=== PATIENT | female | born 1995 | race Caucasian/White ===

== ENCOUNTER 2018-12-21 05:36 | Outpatient (CLI) | payer OTHER ==
[~2018-12-21] VITALS: Ht 154.9 cm; Wt 53.7 kg
[2018-12-21 06:29] VITALS: Ht 154.9 cm; Wt 53.7 kg
[2018-12-21 06:30] VITALS: BP 106/65; PULSE 71; RESP 18
[2018-12-21] MEDS ORDERED: FER325 PO (06:32)
[2018-12-21] MEDS ORDERED: PREN-93 PO (06:33)
[2018-12-21] MEDS ORDERED: LACTATED RINGER'S 1,000 ML IV SCH (06:35)
--- NOTE | 2018-12-21 09:23 | TRIAGE ---
OB Triage Datetime Report Generated by CPN: 12/21/2018 09:23 Datetime: 12/21/2018 07:51 Maternal Assessment Level of Consciousness: Keenly Alert, Responsive DTR's/Clonus: DTRs 2+ Headache: Denies Blurred Vision: No Nausea/Vomiting: Denies RUQ Epigastric Pain: Denies Facial Edema: None Labor Evaluation Frequency: OCCAS Monitor Mode: External Quality: Mild Pattern: Normal: <= 5 Contractions in 10 Minutes Resting Tone [place]: Relaxed Heart Rate FHR Baseline Rate: 135 Monitor Mode: External US FHR Baseline Changes: No Baseline Change Variability: Moderate 6-25 bpm Accelerations: 15X15 Decelerations: None Category: Category I Pain Assessment Pain Scale: 6 Pain Presence: Intermittent Pain Type: Cramping Pain Location: Abdomen Pain Goal: 3 Vaginal Exam Membrane Status: Intact Datetime: 12/21/2018 07:20 Maternal Assessment Level of Consciousness: Keenly Alert, Responsive DTR's/Clonus: DTRs 2+; No Clonus Headache: Denies Blurred Vision: No Respiratory Effort: Unlabored; Regular Rhythm; Equal Expansion Breath Sounds, Left: Clear and Equal Breath Sounds, Right: Clear and Equal Nausea/Vomiting: Denies RUQ Epigastric Pain: Denies Facial Edema: None Fall Risk Assessment History of Falling: (0) No Secondary Diagnosis: (0) No Ambulatory Aid: (0) Bedrest/Nurse Assist IV Therapy: (0) No Gait: (0) Normal/Bedrest/Immobile Mental Status: (0) Oriented to Own Ability Fall Score: 0 Fall Risk Score Definition: No Risk: No action required Datetime: 12/21/2018 06:39 Maternal Assessment Level of Consciousness: Keenly Alert, Responsive DTR's/Clonus: DTRs 2+ Headache: Denies Blurred Vision: No Nausea/Vomiting: Denies RUQ Epigastric Pain: Denies Facial Edema: None Labor Evaluation Frequency: MILD IRREG Monitor Mode: External Quality: Mild Pattern: Normal: <= 5 Contractions in 10 Minutes Resting Tone [place]: Relaxed Heart Rate FHR Baseline Rate: 145 Monitor Mode: External US FHR Baseline Changes: No Baseline Change Variability: Moderate 6-25 bpm Accelerations: 15X15 Decelerations: None Category: Category I Pain Assessment Pain Scale: 6 Pain Presence: Intermittent Pain Type: Cramping Pain Location: Abdomen Vaginal Exam Membrane Status: Intact Datetime: 12/21/2018 06:37 Stage of : OB Triage Datetime: 12/21/2018 06:24 Stage of : OB Triage Datetime: 12/21/2018 06:00 Stage of : OB Triage Labor Evaluation Frequency: Irritability Monitor Mode: External Duration (sec)2399: 20 Quality: Mild Pattern: Normal: <= 5 Contractions in 10 Minutes Resting Tone [place]: Relaxed Heart Rate FHR Baseline Rate: 145 Monitor Mode: External US Variability: Moderate 6-25 bpm Accelerations: 15X15 Decelerations: None Category: Category I Datetime: 12/21/2018 05:50 Time of Arrival: 12/21/2018 05:30 EGA: 33.4 Arrived By: Wheelchair Arrived From: Home Chief Complaint: Abdominal pain x3-4hrs Movement: Present Contractions: Irregular Contractions: [id number] Rupture of Membranes: Denies Vaginal Bleeding: None Vaginal Discharge: Denies Recent Sexual Intercouse: Denies Abdominal Trauma: Not Applicable Patient Complaints: Cramping; Back Pain; Headache; Cough Additional Patient Complaints: Cough x2wks Time Provider Notified: 12/21/2018 06:24 Provider Notified: Initial Plan: Monitor Datetime: 12/21/2018 05:48 Stage of : OB Triage Assessment Type: Triage Maternal Assessment Level of Consciousness: Keenly Alert, Responsive DTR's/Clonus: DTRs 2+; No Clonus Headache: Temporal; Bilateral Blurred Vision: No Respiratory Effort: Unlabored; Regular Rhythm; Equal Expansion Breath Sounds, Left: Clear and Equal Breath Sounds, Right: Clear and Equal Nausea/Vomiting: Denies RUQ Epigastric Pain: Denies Lower Extremities Edema: None Degree: None Upper Extremities Edema: None Degree: None Facial Edema: None Temperature Route: Oral Fall Risk Assessment History of Falling: (0) No Secondary Diagnosis: (0) No Ambulatory Aid: (0) Bedrest/Nurse Assist IV Therapy: (0) No Gait: (0) Normal/Bedrest/Immobile Mental Status: (0) Oriented to Own Ability Fall Score: 0 Fall Risk Score Definition: No Risk: No action required Pain Assessment Pain Scale: 8 Pain Presence: Intermittent Pain Type: Cramping Pain Location: Abdomen; Back Pain Relief Measures: Comfort Measures
--- NOTE | 2018-12-21 17:29 | PN ---
Triage Information Date/Time December 21, 2018 Reason for visit: Patient here with complaint of abdominal pain for the last 3 to 4 hours as well as cough for the past 2 weeks. Weeks of Gestation 33 weeks and 4 days /Para 2 para 1 Diabetes: none Hypertention: none Additional information 23-year-old G2, P1 with IUP at 33 weeks and 4 days with complaint of abdominal pain for the last 3 to 4 hours as well as cough for the past 2 weeks. Patient reports cough has been persistent. Complains of GERD symptoms. Denies any fever or chills. Reports her daughter had URI symptoms in her daughter , but different symptoms Objective Vital Signs Date Temp Pulse Resp B/P (MAP) Pulse Ox O2 O2 Flow FiO2 Time Delivery Rate 12/21/18 97.8 71 18 106/65 Room Air 06:30 (79) Intake and Output 12/20/18 12/20/18 12/21/18 1515:00 23:00 07:00 IntakeIntake Total 125 ml BalanceBalance 125 ml Heart Rate: 130's Heart Rate Comments Cat 1 Contractions: >10 Minutes Apart Exam GA; A&O, x 4, NAD Abdomen: Soft nontender, no rebound tenderness, no guarding, no rigidity, size consistent with dates Lungs: Clear to auscultation bilaterally CV: RRR Extremity: No calf tenderness, no click no edema no cord palpable Cervical length: 3.8 cm Ultrasound with no evidence of placenta previa or abruption RADHA: 13.92 Behavior: 02/13 Results/Medications Results 24 hrs Laboratory Tests Test 12/21/18 05:35 Urine Color YELLOW Urine Clarity CLEAR Urine pH 6.0 Urine Specific [place] 1.011 Urine Ketones NEGATIVE Urine Nitrite NEGATIVE Urine Bilirubin NEGATIVE Urine Urobilinogen NEGATIVE Urine Leukocyte Esterase 2+ H Urine Microscopic RBC 0 Urine Microscopic WBC 5 Urine Squamous Epithelial Cells FEW Urine Bacteria FEW A Urine Hemoglobin NEGATIVE Urine Glucose NEGATIVE Urine Total Protein NEGATIVE Disposition: Discharge Assessment/Plan IUP at 33 weeks and 4 days Cough likely related to GERD symptoms Has been taking Tums with no relief. Discussed with patient regarding elevation of the head and avoid of bending and to take Pepcid and Maalox No evidence of URI No evidence of labor or PPROM testing reassuring Symptoms relieved after hydration Follow-up within 2 to 3 days after discharge from the hospital with primary will be discussed with patient Patient verbalized understanding. All questions were answered to patient's best satisfaction MARGOTH FAJARDO MD Dec 21, 2018 17:29
== END 2018-12-21 09:05 | disposition home or self-care (01) ==
LOC: OBT 05:36 → L-D 05:36 → OBT 09:05
PROVIDERS: ATTEND Specialist
DX: O26.893 Other specified pregnancy related conditions, third trimester (principal); R10.2 Pelvic and perineal pain; R05 Cough; Z3A.33 33 weeks gestation of pregnancy
CPT/HCPCS: 36415; 76817; 76818; 81001; 96360; 96361; J7120; Z7500; G0463

== ENCOUNTER 2019-01-16 20:36 | Outpatient (CLI) | payer OTHER ==
[~2019-01-16] VITALS: Ht 152.4 cm; Wt 55.7 kg
[~2019-01-16 20:36] MED LIST: FER325 PO; PREN-93 PO
[2019-01-16 21:36] VITALS: BMI 24.0
[2019-01-16 21:45] VITALS: Ht 152.4 cm; Wt 55.7 kg
[2019-01-16 21:59] VITALS: BP 108/62; PULSE 101; RESP 16
--- NOTE | 2019-01-16 23:54 | PN ---
Triage Information Date/Time January 16 2019 Reason for visit: IUGR Weeks of Gestation 37w 2d /Para 2/1 Diabetes: none Hypertention: none Additional information Pt was sent in for evaluation for IUGR. Per prior US's the baby is now 3 weeks < dates, on an US done at [facility]. RADHA was 14.9 cm. EFW 2473. Pt's prior baby delivered at 33 weeks for PTL/breech and was 4# 11 oz. PMHx: none. PSHx: x 1. All: shellfish. Objective Vital Signs Date Temp Pulse Resp B/P (MAP) Pulse Ox O2 O2 Flow FiO2 Time Delivery Rate 01/16/19 98.7 101 16 108/62 Room Air 21:59 (77) Heart Rate: 130's Heart Rate Comments Accels to 170 BPM. No decels. Contractions: None Results/Medications Imaging Results Umbilical doppler studies normal. Disposition: Discharge Assessment/Plan A: IUP at 37w 2d. IUGR. P: D/c home. Pt to f/u with the clinic tomorrow and have them call to set up a perinatology visit Sunday for monitoring Sunday and . If she cannot get an appt then she is to return here for f/u on Sunday. Pt is scheduled for delivery 01/28 unless there is indication to deliver sooner. kick counts reviewed with the pt. VERNON LUIS MD Jan 16, 2019 23:54
--- NOTE | 2019-01-17 00:46 | TRIAGE ---
OB Triage Datetime Report Generated by CPN: 01/17/2019 00:45 Datetime: 01/16/2019 23:29 Labor Evaluation Frequency: x3 Monitor Mode: External (Annotations: removed) Duration (sec)2399: 60-150 Pattern: Normal: <= 5 Contractions in 10 Minutes Heart Rate FHR Baseline Rate: 150 Monitor Mode: External US (Annotations: removed) Variability: Moderate 6-25 bpm Accelerations: Prolonged Decelerations: None Category: Category I Datetime: 01/16/2019 23:00 Labor Evaluation Frequency: x1 with irritability Monitor Mode: External Duration (sec)2399: 120 Quality: Mild Pattern: Normal: <= 5 Contractions in 10 Minutes Heart Rate FHR Baseline Rate: 140 Monitor Mode: External US Variability: Moderate 6-25 bpm Accelerations: 15X15 Decelerations: None Category: Category I Datetime: 01/16/2019 21:59 Stage of : OB Triage Assessment Type: Triage Maternal Assessment Level of Consciousness: Keenly Alert, Responsive DTR's/Clonus: DTRs 2+; No Clonus Headache: Denies Blurred Vision: No Respiratory Effort: Unlabored; Regular Rhythm; Equal Expansion Breath Sounds, Left: Clear and Equal Breath Sounds, Right: Clear and Equal Nausea/Vomiting: Denies RUQ Epigastric Pain: Denies Lower Extremities Edema: None Degree: None Upper Extremities Edema: None Degree: None Facial Edema: None Temperature Route: Oral Fall Risk Assessment History of Falling: (0) No Secondary Diagnosis: (0) No Ambulatory Aid: (0) Bedrest/Nurse Assist IV Therapy: (0) No Gait: (0) Normal/Bedrest/Immobile Mental Status: (0) Oriented to Own Ability Fall Score: 0 Fall Risk Score Definition: No Risk: No action required Comments: Patient states she feels active movement. Pain Assessment Pain Scale: 4 Pain Presence: Intermittent Pain Type: Pressure Pain Location: Abdomen Pain Relief Measures: Comfort Measures Datetime: 01/16/2019 21:58 Monitor Mode: External (Annotations: applied) Resting Tone [place]: Relaxed Monitor Mode: External US (Annotations: applied) Datetime: 01/16/2019 21:29 Time of Arrival: 01/16/2019 20:26 EGA: 37.2 Arrived By: Ambulatory Arrived From: Dr. Page Chief Complaint: FOLLOW UP TO R/O IUGR Movement: Present Contractions: Denies/Absent Rupture of Membranes: Denies Vaginal Bleeding: None Vaginal Discharge: Denies Recent Sexual Intercouse: Denies Abdominal Trauma: Not Applicable Time Provider Notified: 01/16/2019 21:34 Provider Notified: Dr. Vegas Initial Plan: EFM, CALL OB Datetime: 12/21/2018 07:20 Fall Score: 0 Fall Risk Score Definition: No Risk: No action required Datetime: 12/21/2018 05:50 EGA: 33.4 Datetime: 12/21/2018 05:48 Fall Score: 0 Fall Risk Score Definition: No Risk: No action required
== END 2019-01-16 23:48 | disposition home or self-care (01) ==
LOC: L-D 20:36 → OBT 20:36 → L-D 21:38 → OBT 23:48
PROVIDERS: ATTEND Specialist
DX: O36.5930 Maternal care for other known or suspected poor fetal growth, third trimester, not applicable or unspecified (principal); Z3A.37 37 weeks gestation of pregnancy
CPT/HCPCS: 76820; Z7500; G0463

== ENCOUNTER 2019-01-28 15:25 | Inpatient (IN) | payer OTHER ==
[~2019-01-28] VITALS: Ht 154.9 cm; Wt 55.2 kg
--- NOTE | 2019-01-28 15:40 | NSTRPT ---
NST Information Datetime Report Generated by CPN: 01/28/2019 15:40 Datetime: 01/24/2019 09:36 NST Information EGA: 38.3 Test Number: 3 Time on Monitor: 01/24/2019 09:48 Time off Monitor: 01/24/2019 10:18 NST Duration (Min): 30 Reason for NST: Other Reason for NST Other: Hx of Late Decels Test and Monitor Explained: Monitor Explained; Test Explained; Verbalized Understanding Pulse: 75 Resp: 18 SBP: 103 DBP: 67 Test Evaluation NST Interventions: None Patient States Movement: Present Contraction Frequency: NONE FHR Baseline : 135 Variability: Moderate 6-25bpm Accelerations: 15X15 Decelerations: None FHR Category: Category I NST Results: Reactive Comments: To u/s. RADHA 13.3cm. CEPHALIC. Electronically Signed By E-Signature: with User ID: [id number] Datetime: 01/21/2019 09:06 NST Information EGA: 38.0 NST Duration (Min): 37 Datetime: 01/20/2019 09:45 NST Information EGA: 37.6 NST Duration (Min): 30
[2019-01-28] MEDS ORDERED: MISOPROSTOL 200 MCG TAB PR PRN ×2 (16:30→20:30)
[2019-01-28] MEDS ORDERED: CARBOPROST 250 MCG INJ IM PRN (16:30)
[2019-01-28] MEDS ORDERED: OXYTOCIN 30 UNITS/LR 500 ML IV PRN (16:30)
[2019-01-28] MEDS ORDERED: METHYLERGONOVINE 0.2 MG INJ IM PRN (16:30)
[2019-01-28] MEDS ORDERED: CEFAZOLIN 2 GM/50 ML (PMX) 50 ML IVPB SCH (16:30)
[2019-01-28] MEDS: LACTATED RINGER'S 1,000 ML IV SCH (16:54)
[2019-01-28 17:29] VITALS: Ht 154.9 cm; Wt 55.2 kg
--- NOTE | 2019-01-28 18:40 | PREAC ---
Date/Time of Note Date/Time of Note DATE: 01/28/19 TIME: 18:39 Anesthesia Eval and Record Evaluation Time Pre-Procedure Interview DATE: 01/28/19 TIME: 18:39 Age 23 Sex female NPO: 8 hrs Preoperative diagnosis IUP AT 39 WEEKS Planned procedure REPEAT C SECTION Past Medical History Past Medical History: None Heme: Anemia Surgery & Anesthesia Issues No known issue Meds Anticoagulation: No Beta Colleen within 24 hr: No Reason Beta Colleen not given: Pt. not on B-Colleen Reported Medications Vit No.124/Iron/FA ( Vitamin Tablet) 1 Each Tablet, 1 EACH PO DAILY, TAB 12/21/18 Ferrous Sulfate* (Ferrous Sulfate*) 325 Mg Tabec, 325 MG PO DAILY, TAB 12/21/18 Current Medications Lactated Ringer's 1,000 ml @ 125 mls/hr Q8H IV Last administered on 01/28/19at 16:54; Admin Dose 125 MLS/HR; Start 01/28/19 at 16:18 Cefazolin Sodium/ Dextrose 50 ml @ 100 mls/hr ONCE IVPB ; Start 01/28/19 at 16:30 Oxytocin/Lactated Ringer's 500 ml @ 125 mls/hr POST IV ; Start 01/28/19 at 16:30 Oxytocin/Lactated Ringer's 500 ml @ 0 mls/hr ONCE PRN IV .VAGINAL BLEEDING; Start 01/28/19 at 16:30 Methylergonovine Maleate (Methergine) 0.2 mg ONCE PRN IM .VAGINAL BLEEDING; Start 01/28/19 at 16:30 Carboprost Tromethamine (Hemabate) 250 mcg ONCE PRN IM .VAGINAL BLEEDING; Start 01/28/19 at 16:30 Misoprostol (Cytotec) 1,000 mcg ONCE PRN UT .VAGINAL BLEEDING; Start 01/28/19 at 16:30 Meds reviewed: Yes Allergies Coded Allergies: shellfish derived (Verified Allergy, Unknown, 01/16/19) Allergies Reviewed: Yes Labs/Studies Labs Reviewed: Reviewed by anesthesiologist Result Diagram: 01/28/19 1630 Laboratory Tests 01/28/19 16:30 Blood Bank Test 01/28/19 16:30 Antibody Screen NEGATIVE Blood Type O POSITIVE Rh Immune Globulin Candidate NO test: Positive Pre-procedure Exam Airway: Adequate mouth opening, Adequate thyromental dist Mallampati: Mallampati I Teeth: Normal Lung: Normal Heart: Normal ASA Physical Status ASA physical status: 2 Emergency: None Planned Anesthetic Neuraxial: Spinal Planned Pain Management Sub-arachniod narcotics Pre-operative Attestations Prior to commencing anesthesia and surgery, the patient was re-evaluated, there was verification of: *The patient's identity *The results of appropriate recent lab work and preoperative vital signs *The above evaluation not changing prior to induction *Anesthetic plan, risk benefits, alternative and complications discussed with patient/family; questions answered; patient/family understands, accepts and wishes to proceed. SOILA POND Jan 28, 2019 18:40
[2019-01-28] MEDS ORDERED: morphine SULFATE/PF (10 MG/10 ML) INJ ONE (19:59)
[2019-01-28] MEDS ORDERED: PHENYLephrine (100 MCG/ML) 10ML SYG ONE (19:59)
[2019-01-28] MEDS ORDERED: CEFAZOLIN 1 GM INJ ONE (20:00)
[2019-01-28] MEDS ORDERED: LACTATED RINGER'S 1,000 ML IV SCH (20:07)
--- NOTE | 2019-01-28 20:07 | HP ---
Date/Time of Note Date/Time of Note DATE: 01/28/19 TIME: 20:05 OB - History Hx of Present Free Text/Dictation 23 YO wih EDC 02/04/2019 with history of previous delivery, who desires to have repeat delivery. I discussed with the patient the risks, benefits, indications, and alternatives of procedure including but not limited to risks of infection, bleeding, damage to other organs, bowel, bladder, hernia formation, scar formation, possibility of blood transfusion, possible need for emergency hysterectomy. She was allowed to ask questions. All her questions were answered. Informed consent has been obtained. Care: Good Care Ultrasounds: Normal mid trimester US Obstetrical Complications: None Medical Complications: None Past Family/Social History * Past Medical, Surgical, Family and Obstetric Histories reviewed from chart. OB Admission Exam Physical Exam HEENT: WNL Heart: Rhythm Normal Lungs: Clear, Equal Abdomen: WNL Extremities: Normal Reflexes: Normal Last 72 hours Lab Results CBC & BMP 01/28/19 16:30 OB Assessment/Plan Reason for admission: other (IUP at 39 weeks, Desires Repeat C/S) Plan: Section RADHA HOPE MD Jan 28, 2019 20:07
[2019-01-28] MEDS ORDERED: ONDANSETRON 4 MG INJ ONE (20:09)
[2019-01-28] MEDS ORDERED: DEXAMETHASONE 4 MG/ML 1 ML INJ ONE (20:09)
[2019-01-28] MEDS ORDERED: OXYCODONE/ACETAMINOPHEN (5/325) TAB PO PRN (20:30)
[2019-01-28] MEDS ORDERED: NA PHOSPHATE/BIPHOS 133 ML ENEMA PR PRN (20:30)
[2019-01-28] MEDS ORDERED: HYDROmorphONE 0.5 MG/0.5 ML SYG IV PRN ×2 (21:00)
[2019-01-28] MEDS ORDERED: ONDANSETRON 4 MG INJ IV PRN (21:00)
[2019-01-28] MEDS ORDERED: KETOROLAC 30 MG INJ IV PRN (21:00)
[2019-01-28] MEDS ORDERED: NALOXONE (0.4 MG/ML) INJ IV PRN (21:00)
[2019-01-28] MEDS ORDERED: DIPHENHYDRAMINE 50 MG INJ IV PRN (21:00)
[2019-01-28] MEDS ORDERED: ZOLPIDEM 5 MG TAB PO PRN (21:00)
--- NOTE | 2019-01-28 21:03 | OPR ---
Date/Time of Note Date/Time of Note DATE: 01/28/19 TIME: 20:59 Operative Report Procedure Date: Jan 28, 2019 Preoperative Diagnosis at 39 weeks. Desires repeat delivery. Postoperative Diagnosis Status post repeat delivery Operation/Procedure Performed Repeat delivery Surgeon Tasneem Vegas MD Order Builder YUN Branch MD Anesthesia Type: spinal Estimated Blood Loss: other (700 mL) Transfusion none Specimen None Grafts/Implants none Tubes/Drains Paige catheter Complications none Pt Condition Post Procedure: stable Disposition: PACU Procedure Description The risks, benefits, indications, alternatives of procedure including, but not limited to risk of infection, bleeding, damage to other organs, bowel, bladder, hernia formation, scar formation, possibility of blood transfusions discussed with patient. She was allowed to ask questions. All her questions were answered. Informed consent was obtained. DESCRIPTION OF PROCEDURE: She was taken to the operating room. Spinal anesthesia was induced. She was prepped and draped in the usual sterile fashion. Surgical time out one. Anesthesia was tested to be adequate. With permission from anesthesiologist, a knife was used to make a Pfannenstiel skin incision. The incision was taken down in layers. The fascia was cut, undermined and from the underlying muscle using sharp and blunt dissection. All the bleeders were cauterized. Peritoneum was entered bluntly. A low transverse incision was developed over the uterus. Amniotic fluid was clear and adequate. A viable infant in vertex presentation was delivered without any difficulty. The cord was clamped and cut, handed to awaiting team. Placenta was then delivered. Uterus was exteriorized, wrapped around a moist lap. Inside uterus was cleaned using a dry lap. All residual membranes were removed. The uterine incision was then closed using #1 Monocryl in 2 layers. The uterus was inserted back inside the abdominal cavity. Irrigation was done carefully. Careful evaluation of the uterine incision revealed no further bleeding. The peritoneum and rectus muscles and fascia were evaluated. All bleeders cauterized. Peritoneum was closed using 2-0 Monocryl. At this time, the count was correct. Rectus muscle was reapproximated using 2-0 Monocryl. Rectus fascia was closed using #1 Vicryl. Subcutaneous tissue was cleaned and irrigated. All bleeders cauterized and the skin closed using Insorb. All counts correct. TASNEEM VEGAS MD Jan 28, 2019 21:03
[2019-01-28] MEDS: OXYTOCIN 30 UNITS/LR 500 ML IV SCH (21:22)
[2019-01-28 23:20] VITALS: BP 125/76; PULSE 80; RESP 19
[2019-01-28] MEDS: IBUPROFEN 600 MG TAB PO SCH (23:48)
[2019-01-28] MEDS: SENNA/DOCUSATE NA (8.6MG/50MG) TAB PO SCH (23:48)
[2019-01-29 01:01] VITALS: BP 107/57; PULSE 62; RESP 20
[2019-01-29] MEDS: OXYTOCIN 30 UNITS/LR 500 ML IV SCH (02:35)
[2019-01-29 03:35] VITALS: BP 100/55; PULSE 60; RESP 19
[2019-01-29] MEDS: IBUPROFEN 600 MG TAB PO SCH ×4 (05:59→23:25)
[2019-01-29 08:00] VITALS: BP 96/49; PULSE 50; RESP 20
[2019-01-29] MEDS: LACTATED RINGER'S 1,000 ML IV SCH ×2 (08:18→13:43)
[2019-01-29] MEDS: SENNA/DOCUSATE NA (8.6MG/50MG) TAB PO SCH ×2 (10:11→21:10)
--- NOTE | 2019-01-29 10:13 | PAC ---
Date/Time of Note Date/Time of Note DATE: 01/29/19 TIME: 10:12 Post-Anesthesia Notes Post-Anesthesia Note Last documented vital signs Vital Signs Date Temp Pulse Resp B/P (MAP) Pulse Ox O2 O2 Flow FiO2 Time Delivery Rate 01/29/19 97.9 50 20 96/49 (65) Room Air 08:00 01/29/19 98 03:35 Activity: WNL Respiratory function: WNL Cardiovascular function: WNL Mental status: Baseline Pain reasonably controlled: Yes Hydration appropriate: Yes Nausea/Vomiting absent: Yes SOILA POND Jan 29, 2019 10:13
--- NOTE | 2019-01-29 10:15 | OPPN ---
Date/Time of Note Date/Time of Note DATE: 01/29/19 TIME: 10:14 Anesthesia Follow up Anesthesia Follow up Last documented vital signs Vital Signs Date Temp Pulse Resp B/P (MAP) Pulse Ox O2 O2 Flow FiO2 Time Delivery Rate 01/29/19 97.9 50 20 96/49 (65) Room Air 08:00 01/29/19 98 03:35 Respiratory function: WNL Cardiovascular function: WNL Comments satisfactory pain management with intrathecal duramorph. no complications SOILA POND Jan 29, 2019 10:15
[2019-01-29 12:00] VITALS: BP 94/52; PULSE 55; RESP 18
[2019-01-29 15:50] VITALS: BP 100/50; PULSE 69; RESP 16
[2019-01-29 20:00] VITALS: BP 98/58; PULSE 59; RESP 18
--- NOTE | 2019-01-29 21:16 | QN ---
Documentation Comment s/p c/s Subjective: no complaint Objective: Afebrile, VSS NAD A&O Abdomen: soft, appropriate tender Incision: no sign of bleeding/infection mild lochia Extremity: 1+ edema bilaterally Assessment: S/p C/S. Postop day #1. Recovering Well Plan: current care RADHA HOPE MD Jan 29, 2019 21:16
[2019-01-30 03:30] VITALS: BP 110/55; PULSE 62; RESP 19
[2019-01-30] MEDS: OXYCODONE/ACETAMINOPHEN (5/325) TAB PO PRN ×2 (04:47→08:48)
[2019-01-30] MEDS: IBUPROFEN 600 MG TAB PO SCH ×4 (05:50→23:54)
[2019-01-30 08:20] VITALS: BP 99/58; PULSE 53; RESP 18
--- NOTE | 2019-01-30 08:40 | DS ---
Date/Time of Note Date/Time of Note DATE: 01/30/19 TIME: 08:39 Obstetrical Discharge Record Final Diagnosis Final Diagnosis: Term delivered Other Final Diagnosis Patient was admitted for repeat delivery which was performed on complications. Postoperative care was uneventful. She remained afebrile with vital signs is stable. She is tolerating regular diet ambulating well and had bowel movement. She is breast-feeding. She is tolerating and coping well with a . She is ambulating well. I provided patient with ankle prescription Patten 2 tablets every 4-6 hours as needed pain #30 and Motrin 800 mg every 8 hours as needed pain #60 Section Section: Repeat Complications Augmentation: No Induction: No Rupture of Membranes: No Condition on Discharge Physical Assessment Voiding: Yes Bowel Movement: Yes Breast: Soft, non-tender, Filling Fundus: Firm Abdomen and Incision: Soft appropriate tender. Incision is clean dry intact no sign of infection. Calf Tenderness: No Patient Condition: Good RADHA HOPE MD Jan 30, 2019 08:40
[2019-01-30] MEDS: SENNA/DOCUSATE NA (8.6MG/50MG) TAB PO SCH ×2 (08:47→20:58)
[2019-01-30] MEDS: LANOLIN HPA 1 PKT TOP PRN (13:54)
[2019-01-30 16:05] VITALS: BP 106/55; PULSE 62; RESP 18
[2019-01-30 20:10] VITALS: BP 109/62; PULSE 75; RESP 18
[2019-01-31 04:27] VITALS: BP 112/65; PULSE 57; RESP 16
[2019-01-31] MEDS: IBUPROFEN 600 MG TAB PO SCH ×2 (05:33→12:35)
[2019-01-31 08:00] VITALS: BP 109/61; PULSE 64; RESP 18
[2019-01-31] MEDS ORDERED: MEASLES,MUMPS,RUBELLA VACCINE INJ SC* ONE (09:00)
[2019-01-31] MEDS ORDERED: DIPHTH/TET/ACEL PERTUSS (ADULT) 0.5 ML VIAL IM* ONE (09:00)
[2019-01-31] MEDS: SENNA/DOCUSATE NA (8.6MG/50MG) TAB PO SCH (09:18)
[2019-01-31] MEDS: LANOLIN HPA 1 PKT TOP PRN (09:18)
--- NOTE | 2019-02-01 15:18 | DELSUM ---
Delivery Summary A-C Datetime Report Generated by CPN: 02/01/2019 15:18 DELIVERY PERSONNEL Lead Performance Support Analyst: [place], [place] MATERNAL INFORMATION Delivery Anesthesia: Spinal Medications in Delivery: SEE ANESTHESIA RECORD Delivery QBL (ml): 700 Placenta Cultured: No Maternal Complications: None LABOR SUMMARY EDC: 02/04/2019 00:00 No. Babies in Womb: 1 Attempted: No Labor Anesthesia: Intrathecal LABOR INFORMATION Reason for Induction: Not Applicable Group B Beta Strep: Done, Result Unknown Antibiotics # of Doses: X1 2G ANCEF Antibiotics Time of Last Dose: 01/28/2019 21:10 Steroids Given: None Reason Steroids Not Administered: Not Applicable MEMBRANES Membranes Rupture Method: Artificial Rupture of Membranes: 01/28/2019 20:32 Length of Rupture (hr): 0.02 Amniotic Fluid Color: Clear Amniotic Fluid Amount: Moderate Amniotic Fluid Odor: None STAGES OF LABOR Stage 3 hr: 0 Stage 3 min: 1 VAGINAL DELIVERY Episiotomy: None Laceration Extension: N/A Laceration Type: None Laceration Repair: Not Applicable CSECTION DELIVERY Primary Indication: Repeat Elective Secondary Indication: N/A CSection Urgency: Elective CSection Incidence: Repeat Labor: No Labor Elective: Elective CSection Incision: Lower Uterine Transverse BABY A INFORMATION Delivery Date/Time: 01/28/2019 20:33 Method of Delivery: Born in Route : No : N/A Forceps: N/A Vacuum Extraction: N/A Shoulder Dystocia : Yes SHOULDER DYSTOCIA BABY A Infant Delivery Date/Time: 01/28/2019 20:33 PRESENTATION/POSITION BABY A Presentation: Cephalic Cephalic Presentation: Vertex Vertex Position: Right Occipital Posterior Breech Presentation: N/A PLACENTA INFORMATION BABY A Placenta Delivery Time : 01/28/2019 20:34 Placenta Method of Delivery: Manual Removal Placenta Status: Delivered SCORES BABY A Heart Rate 1 min: >100 bpm Resp Effort 1 min: Good Cry Reflex Irritability 1 min: Cough/Sneeze/Pulls Away Muscle Tone 1 min: Active Motion Color 1 min: Blue/Pale Resuscitation Effort 1 min: Tactile Stimulation SCORE 1 MIN: 8 Heart Rate 5 min: >100 bpm Resp Effort 5 min: Good Cry Reflex Irritability 5 min: Cough/Sneeze/Pulls Away Muscle Tone 5 min: Active Motion Color 5 min: Body [place], Extremit Blue Resuscitation Effort 5 min: Tactile Stimulation SCORE 5 MIN: 9 INFANT INFORMATION BABY A Gestational Age at Delivery: 39.0 Gestational Status: Full Term- 39- 40.6 Weeks Infant Outcome : Liveborn, with signs of life Infant Condition : Stable Sex: Female IDENTIFICATION/MEDS BABY A ID Band Number: [id number] ID Band Location: Right Leg; Left Arm Sensor Applied: Yes Sensor Number: [id number] Sensor Location : Cord Clamp Vitamin K Given : Not Given Erythromycin Given: Not Given CORD INFORMATION BABY A No. Cord Vessels: 3 Nuchal Cord : N/A Cord Blood Taken: Yes Infant Suction: Mouth; Nose
== END 2019-01-31 15:18 | disposition home or self-care (01) | DRG 788 ==
LOC: L-D 15:25 → PP1 22:56 → EDSTATUS 02-04 15:27
PROVIDERS: ADMIT Specialist; ATTEND Specialist
PROC: 10D00Z1 Extraction of Products of Conception, Low, Open Approach (ICD-10-PCS; principal; 2019-01-28)
DX: O34.211 Maternal care for low transverse scar from previous cesarean delivery (principal); Z3A.39 39 weeks gestation of pregnancy; Z37.0 Single live birth
CPT/HCPCS: 85025; 85610; 85730; 86592; 86850; 86900; 86901; 87340; 99464; J0690; J1100; J1885; J2274; J2370; J2405; J2590; J7120